=== PATIENT | male | born 1960 | race Caucasian/White ===

== ENCOUNTER 2017-03-08 06:14 | Day surgery (SDC) | payer OTHER ==
[2017-03-06 16:19] VITALS: BMI 36.4
[2017-03-08] MEDS ORDERED: MIDAZOLAM HCL 2 MG/2 ML SINGLE DOSE VIAL ONE ×2 (07:24→07:57)
[2017-03-08] MEDS ORDERED: ONDANSETRON 4 MG/2 ML VIAL IVPUSH PRN (07:28)
[2017-03-08] MEDS ORDERED: PROMETHAZINE HCL 25 MG/1 ML VIAL IVPUSH PRN (07:28)
[2017-03-08] MEDS ORDERED: LACTATED RINGERS SOLUTION 1,000 ML IV SCH (07:30)
[2017-03-08] MEDS ORDERED: oxyCODONE HCL 5 MG TABLET PO PRN (08:54)
--- NOTE | 2017-03-08 08:57 | OP ---
Operative Note - Note: Operative Date: 03/08/17 Pre-Operative Diagnosis: BPH-trilobar hyperplasia with nocturia Operation: Bipolar TURP/TURVP Findings: trilobar hyperplasia, also bulbar stricture Post-Operative Diagnosis: Same as Pre-op Surgeon: Favian Pantoja Anesthesia: General, Spinal Specimens Removed: prostate chips Estimated Blood Loss (mls): 20 Operative Report Dictated: Yes
[2017-03-08] MEDS ORDERED: ELECTROLYTE-148 SOLN 1,000 ML IV SCH (09:00)
[2017-03-08 09:19] VITALS: TEMP 98
--- NOTE | 2017-03-08 09:56 | OP ---
DATE OF OPERATION: DATE OF DICTATION: 03/08/2017 PREOPERATIVE DIAGNOSIS: BPH with nocturia. POSTOPERATIVE DIAGNOSIS: BPH with nocturia. PROCEDURE: Bipolar transurethral resection of prostate and bipolar transurethral vaporization of prostate. SURGEON: Anabell Broussard MD INDICATION: Patient is a 57-year-old male with BPH and bothersome nocturia failed medical therapy. After reviewing treatment options, he has elected to undergo TURP. He understood the risks of bleeding, infection, impotence, incontinence, stricture formation, potential retrograde ejaculation, potential need for additional procedures, potential injury to adjacent organs. DESCRIPTION OF PROCEDURE: After informed consent was obtained, the patient was taken to the OR and placed supine on the table. Cardiac monitoring was administered. A spinal anesthetic was then given. He was prepped and draped in dorsal lithotomy position. He was given 500 mg of Levaquin. At this point, the 26-sheath with the rigid cystoscope with the visual obturator without difficulty normal. Bulbar urethra was a bit narrowed and strictured, but this was bypassed and dilated with the scope under visualization. The prostatic urethra was traversed and then the bladder visualized. There were no tumors or stones noted in the bladder. The prostatic urethra had a sort of bilobed median lobe and there was lateral lobe hyperplasia as well. Using the loop first, the median bar was taken down until it was flat level to the bladder neck. This tissue was removed with the Domo evacuator and sent to Pathology for analysis. Then using the button electrode, the residual median bar tissue was then flattened and vaporized as well as some of the lateral tissue until a wide-open channel was created. There was no resecting or vaporization within one centimeter of the verumontanum to minimize the chance of incontinence. With a wide-open channel created, the residual prostatic chips were removed and there was no injury to any structures in the bladder. Bilateral ureteral orifices were seen with normal efflux. Resectoscope was then removed and a 22-[place] Rodas was then placed to straight drainage. [place]-tinged urine was retrieved. The patient was then awoken from anesthesia and transferred to the recovery room in stable condition. There were no complications. Estimated blood loss was 20 mL. ANABELL BROUSSARD M.D. [id number]
[2017-03-08 11:51] VITALS: BP 148/86; PULSE 86
--- NOTE | 2017-03-13 13:06 | PATH ---
Surgical Pathology Report Patient Name: JAJA HUSSEIN [facility]. Rec. #: [id number] /Age/Gender: 1960 (Age: 57) / M Account: [id number] Location: [facility] Taken: 03/08/2017 Received: 03/08/2017 Reported: 03/13/2017 Physicians: Favian Pantoja M.D. Specimen(s) Received PROSTATE CHIPS Clinical History Benign prostatic hyperplasia Final Diagnosis PROSTATE, TRANSURETHRAL RESECTION OF PROSTATE: BENIGN PROSTATIC TISSUE WITH FOCAL CHRONIC INFLAMMATION, ACINAR ATROPHY, CYSTIC CHANGES, GLANDULAR AND STROMAL HYPERPLASIA. Electronically Signed Pamela Shipley M.D. Gross Description Received in formalin labeled "prostate chips," is a 5 g, 8.0 x 5.3 x 0.4 cm aggregate of multiple becker, irregular, firm to rubbery portions of tissue, consistent with prostate chips. The specimen is entirely submitted in 7 cassettes. 03/08/201703/08/2017
== END 2017-03-08 11:51 | disposition home or self-care (01) ==
LOC: JASU-SURG 06:14
PROVIDERS: ATTEND Urology
PROC: 0VT08ZZ Resection of Prostate, Via Natural or Artificial Opening Endoscopic (ICD-10-PCS; principal; 2017-03-08 07:30)
DX: N40.1 Benign prostatic hyperplasia with lower urinary tract symptoms (principal); R35.1 Nocturia
CPT/HCPCS: 88305-TC; 94760

== ENCOUNTER 2018-11-21 14:29 | Inpatient (IN) | payer OTHER ==
[2018-11-21] MEDS ORDERED: ASPIRIN 81 MG CHEWABLE TABLETS PO ONE (14:45)
--- NOTE | 2018-11-21 14:45 | PDOC ---
Rapid Medical Evaluation Time Seen by Provider: 11/21/18 14:41 Medical Evaluation: Allergies Allergy/AdvReac Type Severity Reaction Status Date / Time Penicillins Allergy Intermediate Verified 03/08/17 06:38 11/21/18 14:42 I have performed a brief in-person evaluation of this patient. The patient presents with a chief complaint of: went to urgent care bc of "feeling elevated BP and PVCs" x 2-3 days, abnormal EKG at [facility] and sent here (no meds given there). denies sob/chest pain, denies hx of ACS. hx of HTN. denies tobacco/drug use Pertinent physical exam findings: well appearing, NAD, BP 214/119 I have ordered the following: cardiac workup The patient will proceed to the ED for further evaluation. Discharge Disposition - Diagnosis Abnormal EKG, Hypertensive emergency - Discharge Dispostion Condition at time of disposition: Stable - Referrals - Patient Instructions - Post Discharge Activity
[2018-11-21 14:49] VITALS: BMI 38.5
--- NOTE | 2018-11-21 14:56 | PDOC ---
History of Present Illness - General Chief Complaint: Palpitations Stated Complaint: SENT BY PCP FOR ABN EKG Time Seen by Provider: 11/21/18 14:41 Past History - Past Medical History Allergies/Adverse Reactions: Allergies Allergy/AdvReac Type Severity Reaction Status Date / Time Penicillins Allergy Intermediate Verified 03/08/17 06:38 Home Medications: Ambulatory Orders Metoprolol Succinate 100 mg PO BID 03/06/17 Valsartan-Hctz 320-25 mg Tab 1 tab PO DAILY 03/06/17 Nifedipine ER [Procardia XL -] 30 mg PO DAILY #30 tab.er.24 11/22/18 Anemia: No Asthma: No Cancer: No Cardiac Disorders: No CVA: No COPD: No CHF: No Dementia: No Diabetes: No GI Disorders: No Disorders: No HTN: Yes Hypercholesterolemia: No Liver Disease: No Seizures: No Thyroid Disease: No - Surgical History Abdominal Surgery: No Appendectomy: No Cardiac Surgery: No Cholecystectomy: No Lung Surgery: No Neurologic Surgery: No Orthopedic Surgery: No - Psycho Social/Smoking Cessation Hx Smoking History: Never smoked Have you smoked in the past 12 months: No Information on smoking cessation initiated: No Hx Alcohol Use: No Drug/Substance Use Hx: No Substance Use Type: None Hx Substance Use Treatment: No *Physical Exam - Vital Signs Last Vital Signs Temp Pulse Resp BP Pulse Ox 98.1 F 70 16 214/119 H 98 11/21/18 14:43 11/21/18 14:43 11/21/18 14:43 11/21/18 14:43 11/21/18 14:43 ED Treatment Course - LABORATORY CBC & Chemistry Diagram: 11/21/18 14:52 11/21/18 14:52 Medical Decision Making - Medical Decision Making HPI: 58yo M with PMH of HTN, PVC's, and BPH presenting with hypertension, PVCs, and episode of dizziness. Patient states he has been compliant on his medications. He does not check his blood pressure regularly at home, but will when he feels poorly. Over the past two-three days, the blood pressure has been consistently high, in the 200s systolic. He had an episode of room-spinning dizziness yesterday at 1pm and felt like he might pass out. Denies chest pain or trouble breathing. Has a history of PVCs and felt they have occured more frequently. Went to an urgent care today and was referred to the ER for further evaluation. No fevers or chills. PCP: none Cardio: none ROS: Constitutional: no fever, no chills HEENT: no throat pain, no dysphagia Cardiovascular: no chest pain, no palpitations Respiratory: no cough, no shortness of breath Gastrointestinal: no abdominal pain, no nausea Genitourinary: no dysuria, no hematuria Musculoskeletal: no myalgia, no arthralgia Skin: no rash, no itching Neurologic: +dizziness, no weakness PE: General: Awake, alert, and fully oriented, morbidly obese, in no acute distress Head: No signs of trauma Eyes: EOMI, sclera anicteric ENT: Moist mucus membranes Neck: Normal ROM, supple Lungs: Lungs clear, Normal breath sounds Cardio: Regular rhythm, S1 and S2 present Abdomen: Soft, nontender Extremities: Normal range of motion, Distal pulses present, No calf tenderness SKIN: Warm, Dry, normal turgor Neurologic: Cranial nerves II through XII intact. Normal speech, strength, sensation, coordination. Deferred gait exam ED Course/MDM: DDX including but not limited to hypertensive urgency vs emergency, ACS, pre/ syncope, metabolic derangement, Labs, EKG, CXR Labetolol 10mg IV 11/21/18 14:56 EKG: rate 78, QTc 481, sinus with PVCs CT head without IV contrast: "CT scan of the head without intravenous contrast Compared to prior CT scan of the head dated 08/21/2009 and prior MRI of the head dated 01/08/2007. There is minimal volume loss which is nonspecific. The ventricles and basal cisterns appear unremarkable. No mass lesion, acute infarct or intracranial hemorrhage are identified. There is no shift of the midline structures. The craniocervical junction appears unremarkable. Visualized paranasal sinuses and mastoid air cells are well aerated and the calvarium is intact Impression: No gross CT evidence of acute intracranial pathology is identified. Correlate clinically to determine further evaluation and follow-up " 11/21/18 17:08 CBC WBC 9.8 K/mm3 (4.0-10.0) 11/21/18 14:52 RBC 4.59 M/mm3 (4.00-5.60) 11/21/18 14:52 Hgb 13.9 GM/dL (11.7-16.9) 11/21/18 14:52 Hct 40.9 % (35.4-49) 11/21/18 14:52 MCV 89.3 fl (80-96) 11/21/18 14:52 MCH 30.4 pg (25.7-33.7) 11/21/18 14:52 MCHC 34.0 g/dl (32.0-35.9) 11/21/18 14:52 RDW 14.2 % (11.9-15.9) 11/21/18 14:52 Plt Count 214 K/MM3 (134-434) 11/21/18 14:52 MPV 8.7 fl (7.5-11.1) 11/21/18 14:52 Absolute Neuts (auto) 6.5 K/mm3 (1.5-8.0) 11/21/18 14:52 Neutrophils % 66.5 % (42.8-82.8) 11/21/18 14:52 Lymphocytes % 21.7 % (8-40) 11/21/18 14:52 Monocytes % 8.6 % (3.8-10.2) 11/21/18 14:52 Eosinophils % 2.4 % (0-4.5) 11/21/18 14:52 Basophils % 0.8 % (0-2.0) 11/21/18 14:52 Nucleated RBC % 0 % (0-0) 11/21/18 14:52 No leukocytosis CMP Sodium 142 mmol/L (136-145) 11/21/18 14:52 Potassium 3.3 mmol/L (3.5-5.1) L 11/21/18 14:52 Chloride 106 mmol/L (98-107) 11/21/18 14:52 Carbon Dioxide 31 mmol/L (21-32) 11/21/18 14:52 Anion Gap 4 MMOL/L (8-16) L 11/21/18 14:52 BUN 19.6 mg/dL (7-18) H 11/21/18 14:52 Creatinine 1.0 mg/dL (0.55-1.3) 11/21/18 14:52 Est GFR (CKD-EPI)AfAm 96.40 11/21/18 14:52 Est GFR (CKD-EPI)NonAf 83.18 11/21/18 14:52 Random Glucose 83 mg/dL (74-106) 11/21/18 14:52 Calcium 8.7 mg/dL (8.5-10.1) 11/21/18 14:52 Magnesium 2.2 mg/dL (1.8-2.4) 11/21/18 14:52 Total Bilirubin 0.4 mg/dL (0.2-1) 11/21/18 14:52 AST 17 U/L (15-37) 11/21/18 14:52 ALT 28 U/L (13-61) 11/21/18 14:52 Alkaline Phosphatase 63 U/L (45-117) 11/21/18 14:52 Creatine Kinase 184 U/L (26-308) 11/21/18 14:52 Creatine Kinase Index 0.8 % (0.0-5.0) 11/21/18 14:52 CK-MB (CK-2) 1.5 ng/mL (0.5-3.6) 11/21/18 14:52 Troponin I < 0.02 ng/ml (0.00-0.05) 11/21/18 14:52 Total Protein 7.2 g/dl (6.4-8.2) 11/21/18 14:52 Albumin 3.8 g/dl (3.4-5.0) 11/21/18 14:52 K is low Cr normal Tpn undetectable No signs of end organ damage seen at this time BP 166/102 (MAP 123) BP 182/100 (MAP 127) Plan for admission for hypertensive emergency vs. urgency 11/21/18 17:49 Discussed case with MARCIE Vick who accpeted patient for telemetry admission under Dr. Morales 11/21/18 18:05 CXR as read by radiology: "Chest x-ray, PA and lateral. Since prior chest x-ray dated 01/07/2007, the cardiac silhouette remains borderline in size with mild atherosclerotic unfolding of the aortic arch and the lung is clear. Mediastinum and visualized osseous structures appear intact. Impression: Borderline cardiomegaly without evidence of acute lung " Discharge - Discharge Information Problems reviewed: Yes Clinical Impression/Diagnosis: Abnormal EKG, Hypertensive emergency, Palpitations Condition: Guarded - Admission Yes - Follow up/Referral - Patient Discharge Instructions - Post Discharge Activity
[2018-11-21] MEDS ORDERED: ASPIRIN 81 MG CHEWABLE TABLETS ONE (15:04)
[2018-11-21 15:15] LABS: BASO % 0.8 % (0-2.0); EOS % 2.4 % (0-4.5); HEMATOCRIT 40.9 % (35.4-49); HEMOGLOBIN 13.9 GM/dL (11.7-16.9); LYMPH % 21.7 % (8-40); MCH 30.4 pg (25.7-33.7); MEAN CELL VOLUME 89.3 fl (80-96); MEAN PLT VOLUME 8.7 fl (7.5-11.1); MONO % 8.6 % (3.8-10.2); NEUT % 66.5 % (42.8-82.8); PLATELET COUNT 214 K/MM3 (134-434); RBC 4.59 M/mm3 (4.00-5.60); RDW 14.2 % (11.9-15.9); WHITE BLOOD COUNT 9.8 K/mm3 (4.0-10.0)
[2018-11-21 15:34] LABS: ALBUMIN 3.8 g/dl (3.4-5.0); ALK PHOS 63 U/L (45-117); ANION GAP 4 MMOL/L (8-16); BILIRUBIN,TOTAL 0.4 mg/dL (0.2-1); BLOOD UREA NITROGEN 19.6 mg/dL (7-18); CALCIUM 8.7 mg/dL (8.5-10.1); CHLORIDE 106 mmol/L (98-107); CO2 31 mmol/L (21-32); GLUCOSE,RANDOM 83 mg/dL (74-106); MAGNESIUM 2.2 mg/dL (1.8-2.4); POTASSIUM 3.3 mmol/L (3.5-5.1); SGOT/AST 17 U/L (15-37); SGPT/ALT 28 U/L (13-61); SODIUM 142 mmol/L (136-145); TOT PROT 7.2 g/dl (6.4-8.2)
[2018-11-21 15:39] LABS: INR 1.03 (0.83-1.09); PROTHROMBIN TIME (PATIENT) 12.1 SEC (9.7-13.0)
[2018-11-21] MEDS ORDERED: LABETALOL HCL 5 MG/1 ML (100MG/20 ML VIAL) IVPUSH ONE (15:50)
--- NOTE | 2018-11-21 16:45 | PDOC ---
Documentation entered by Lizet Quintanilla SCRIBE, acting as scribe for Paras Drake MD. Paras Drake MD: This documentation has been prepared by the Dwight vang Adrianna, SCRIBE, under my direction and personally reviewed by me in its entirety. I confirm that the documentation accurately reflects all work, treatment, procedures, and medical decision making performed by me. Attending Attestation - Resident Resident Name: ClementinaMilenaVannesa - ED Attending Attestation I have performed the following: I have examined & evaluated the patient, The case was reviewed & discussed with the resident, I agree w/resident's findings & plan, Exceptions are as noted - HPI HPI: The patient is a 58 year old male, with a significant PMH of HTN, PVC's, and BPH , who presents to the ED for evaluation of elevated BP for 2-3 days. He states his BP has been elevated over the past 3 days (200s systolic), and notes more frequent PVCs than his baseline. Patient reports one episode of room-spinning dizziness yesterday. Patient went to [facility] earlier today for these complaints, where he was found to have an abnormal EKG and advised to come to the ED for further evaluation. Patient was compliant with all of his medications this morning. DEnies diaphoresis, headahce, CP, SOB, abd pain,N/V/D, visual sxs, urinary sxs, LE edema. Allergies: Penicillins Surgical History: None reported Social History: Denies EtOH, tobacco, or illicit drug use - Physicial Exam PE: Agree with resident exam - Medical Decision Making 11/21/18 16:37 58yo M hx HTN presents to the ED with elevated BP to 220s/111, with intermittent room spinning dizziness, increased frequency PVCs, . Pt compliant with 4 antihypertensive medications. Reports normal BP when he checks is in 140s systolic. In light of room spinning dizziness, pre-syncope, increased PVCs, concern for end organ damage. Will treat with IV labetalol and initiate end-organ damage w/u Anticipate admission for HTN urgency vs emergency - pt will need titration of anti-HTN regimen for better blood pressure control. Heart Score/ECG Review #1 11/21/18 16:35 EKG read and int by me: NSR, rate 78, normal axis. No SCOTT. +occasional PVCs
[2018-11-21] MEDS ORDERED: KCL 10 MEQ IVPB 30 MEQ/300 ML INFUS.BAG IVPB ONE (16:55)
[2018-11-21] MEDS: KCL 10 MEQ IVPB 10 MEQ/100 ML INFUS.BAG IVPB SCH ×3 (17:08→22:51)
[2018-11-21 17:55] LABS: PHOSPHOROUS 2.5 mg/dL (2.5-4.9)
[2018-11-21 20:57] LABS: URINE APPEARANCE CLEAR; URINE BILIRUBIN NEGATIVE (NEGATIVE); URINE COLOR YELLOW; URINE GLUCOSE (UA) NEGATIVE (NEGATIVE); URINE KETONE NEGATIVE (NEGATIVE); URINE LEUK ESTERASE NEGATIVE (NEGATIVE); URINE NITRITE NEGATIVE (NEGATIVE); URINE PROTEIN TRACE (NEGATIVE)
--- NOTE | 2018-11-21 23:19 | PN ---
Teaching Attending Note Name of Resident: Doris Kaplan ATTENDING PHYSICIAN STATEMENT I saw and evaluated the patient. I reviewed the resident's note and discussed the case with the resident. I agree with the resident's findings and plan as documented. SUBJECTIVE: 58 year old morbidly obese male with HTN, PVC's, and BPH, c/o elevated BP for 2- 3 days. He stated his BP has been elevated over the past 3 days (200s systolic) , and notes more frequent PVCs than his baseline. Patient reports one episode of room-spinning dizziness yesterday. Patient went to [facility] earlier for these complaints, where he was found to have an abnormal EKG and advised to come to the ED for further evaluation. OBJECTIVE: Last Vital Signs Temp Pulse Resp BP Pulse Ox 98.5 F 72 19 184/93 H 100 11/21/18 19:03 11/21/18 19:03 11/21/18 19:03 11/21/18 19:03 11/21/18 19:03 gen- nad , obese heent- normocephalic, moist mucous membranes neck supple cor s1+s2+rrr chest clear abd -soft nt ext - no pedal edema Abnormal Lab Results 11/21/18 14:52 Potassium 3.3 L Anion Gap 4 L BUN 19.6 H ekg reviewed imaging reviewed ASSESSMENT AND PLAN: #Severe asymptomatic hypertension - no evidence of end organ damage. EKG without signs of ischemia, trop neg, head ct neg. S/p IV labetolol in ER. BP dropped to 184/93. UA was wnl except for trace proteinuria. CXR normal w/o pleural effusions. Goal of BP drop is about 25% from original in first 6hrs. -admit to med/surg -restart on home anti htn med - valsartan/hctz, metoprolol succinate, -counseled on weight loss -bariatric surgery upon discharge -echo -workup for secondary causes of htn -counseled on salt restriction -pt noted to be on valsartan and lisinopril- suggested to stop lisinopril and restart nifedipine DVT ppx- heparin sc
[2018-11-22] MEDS ORDERED: LISINOPRIL 40 MG PO SCH ×2 (01:19→10:00)
[2018-11-22] MEDS ORDERED: VALSARTAN HCTZ PO SCH ×2 (01:19→10:00)
--- NOTE | 2018-11-22 02:17 | HP ---
CHIEF COMPLAINT: hypertension, dizziness PCP: was Dr. Welsh in [place] but no longer takes his insurance HISTORY OF PRESENT ILLNESS: 58 y.o. M PMH HTN, BPH s/p TURP presenting for multiple hypertensive episodes over the past 2-3 days. Pt went to urgent care today initially where he was found to have elevated BP with EKG showing prolonged qtc (491) & was told to come to the ED. The patient says he checks his BP at home about every few days and noticed it was in the 200s systolic recently x 3days and endorses palpitations. As per patient BP's are normally around 130s/90s at baseline. He also reports being in the supermarket yesterday when he became very dizzy and had to take a knee to prevent himself from falling. Patient says he takes all of his medications as prescribed. He follows up regularly with his PCP who is also his liaison officer (Dr. Welsh in [place]) but recently his insurance changed and they no longer accept his insurance so he is looking for new physicians for follow up care. On ROS: + dizziness Denies CP/ SOB/ OSBORN/ abd pain/ fevers/ chills/ N/V/D/ parasthesias/ myalgias/ weakness. ER course was notable for: (1) IV Labetalol 10mg IV (2) ASA 162mg (3) KCl 10mg IV Recent Travel: denies PAST MEDICAL HISTORY: HTN, BPH PAST SURGICAL HISTORY: TURP 2 yrs ago Social History: Smoking: denies Alcohol: denies Drugs: denies Allergies Penicillins Allergy (Intermediate, Verified 03/08/17 06:38) unsure of reaction HOME MEDICATIONS: Home Medications Medication Instructions Recorded Lisinopril 40 mg PO BID 03/06/17 Metoprolol Succinate 100 mg PO BID 03/06/17 Valsartan-Hctz 320-25 mg Tab 1 tab PO DAILY 03/06/17 PHYSICAL EXAMINATION Vital Signs - 24 hr 11/21/18 11/21/18 11/21/18 14:43 15:18 16:09 Temperature 98.1 F 98.5 F 98.5 F Pulse Rate 70 Pulse Rate [ 69 69 Left Radial] Respiratory 16 19 19 Rate Blood Pressure 214/119 H Blood Pressure 227/111 H 166/102 H [Left Arm] Blood Pressure [Right Arm] O2 Sat by Pulse 98 98 98 Oximetry (%) 11/21/18 11/21/18 11/22/18 17:10 19:03 00:28 Temperature 98.5 F Pulse Rate Pulse Rate [ 67 72 65 Left Radial] Respiratory 18 19 18 Rate Blood Pressure Blood Pressure 182/100 H 184/93 H [Left Arm] Blood Pressure 173/91 H [Right Arm] O2 Sat by Pulse 100 100 97 Oximetry (%) GENERAL: AOx3 NAD LUNGS: CTABL no incr work of breathing. No wheezing/ crackles noted. HEART: RRR no murmurs. ABDOMEN: Soft NTND. +BS. no organomegaly. MUSCULOSKELETAL: Normal range of motion all extremities EXTR: 2+ pulses palpated b/l UE & LE. 1+ edema noted LE's SKIN: No rashes or lesions noted. Laboratory Results - last 24 hr 11/21/18 11/21/18 11/21/18 14:52 14:52 14:52 WBC 9.8 RBC 4.59 Hgb 13.9 Hct 40.9 MCV 89.3 MCH 30.4 MCHC 34.0 RDW 14.2 Plt Count 214 MPV 8.7 Absolute Neuts (auto) 6.5 Neutrophils % 66.5 Lymphocytes % 21.7 Monocytes % 8.6 Eosinophils % 2.4 Basophils % 0.8 Nucleated RBC % 0 PT with INR 12.10 INR 1.03 Sodium 142 Potassium 3.3 L Chloride 106 Carbon Dioxide 31 Anion Gap 4 L BUN 19.6 H Creatinine 1.0 Est GFR (CKD-EPI)AfAm 96.40 Est GFR (CKD-EPI)NonAf 83.18 Random Glucose 83 Calcium 8.7 Phosphorus 2.5 Magnesium 2.2 Total Bilirubin 0.4 AST 17 ALT 28 Alkaline Phosphatase 63 Creatine Kinase 184 Creatine Kinase Index 0.8 CK-MB (CK-2) 1.5 Troponin I < 0.02 Total Protein 7.2 Albumin 3.8 TSH 1.28 Urine Color Urine Appearance Urine pH Ur Specific [place] Urine Protein Urine Glucose (UA) Urine Ketones Urine Blood Urine Nitrite Urine Bilirubin Urine Urobilinogen Ur Leukocyte Esterase 11/21/18 20:22 WBC RBC Hgb Hct MCV MCH MCHC RDW Plt Count MPV Absolute Neuts (auto) Neutrophils % Lymphocytes % Monocytes % Eosinophils % Basophils % Nucleated RBC % PT with INR INR Sodium Potassium Chloride Carbon Dioxide Anion Gap BUN Creatinine Est GFR (CKD-EPI)AfAm Est GFR (CKD-EPI)NonAf Random Glucose Calcium Phosphorus Magnesium Total Bilirubin AST ALT Alkaline Phosphatase Creatine Kinase Creatine Kinase Index CK-MB (CK-2) Troponin I Total Protein Albumin TSH Urine Color Yellow Urine Appearance Clear Urine pH 6.0 Ur Specific [place] 1.023 Urine Protein Trace Urine Glucose (UA) Negative Urine Ketones Negative Urine Blood Negative Urine Nitrite Negative Urine Bilirubin Negative Urine Urobilinogen 1.0 Ur Leukocyte Esterase Negative CXR: Borderline cardiomegaly without evidence of acute lung CT Head: No gross CT evidence of acute intracranial pathology is identified. ASSESSMENT/PLAN: 58 y.o. M PMH HTN, BPH s/p TURP presenting for multiple hypertensive episodes. #Hypertensive urgency -BP 214/119 on admission -S/p 10mg IV labetalol in ED, ASA 162mg -positive orthostatics: supine 174/87 sitting 167/94 standing 192/105 -Neg trop x2; trend -EKG @ urgent care shows prolonged qtc 491; EKG in ED shows rate 78, QTc 481, sinus with PVCs -restarted home meds: metoprolol 100mg BID, lisinopril 40mg BID, valsartan-hctz 320/25mg -F/u echo -vitals q4h -monitor on tele #Morbid obesity -pt endorses better bp's when he had lost weight in the past -counselled pt on importance of heathy diet, exercise & weight loss -recommend bariatric consult on d/c #BPH -controlled s/p TURP #FEN -no fluids at this time -hypokalemic, repleted -na controlled diet #DVT PPX -LVX 40mg SQ daily Visit type - Emergency Visit Emergency Visit: Yes ED Registration Date: 11/21/18 Care time: The patient presented to the Emergency Department on the above date and was hospitalized for further evaluation of their emergent condition. - New Patient This patient is new to me today: Yes Date on this admission: 11/22/18 - Critical Care Critical Care patient: No ATTENDING PHYSICIAN STATEMENT I saw and evaluated the patient. I reviewed the resident's note and discussed the case with the resident. I agree with the resident's findings and plan as documented. SUBJECTIVE: OBJECTIVE: ASSESSMENT AND PLAN:
[2018-11-22] MEDS ORDERED: LISINOPRIL 20 MG TABLET (FP) ONE (02:42)
[2018-11-22] MEDS ORDERED: HYDROCHLOROTHIAZIDE 25 MG TABLET (FP) ONE (02:42)
[2018-11-22] MEDS ORDERED: VALSARTAN 80 MG TABLET (UD) ONE (02:44)
[2018-11-22] MEDS ORDERED: LISINOPRIL 20 MG TABLET (FP) PO ONE (02:45)
[2018-11-22] MEDS: VALSARTAN 160 MG TABLET (UD) PO SCH ×2 (02:50→08:34)
[2018-11-22] MEDS: HYDROCHLOROTHIAZIDE 25 MG TABLET (FP) PO SCH ×2 (02:50→08:34)
[2018-11-22 08:32] VITALS: PULSE 74; TEMP 98
[2018-11-22] MEDS: ENOXAPARIN NA (PORCINE) 40 MG/0.4 ML DISP.SYRIN SQ SCH ×2 (08:33→09:21)
--- NOTE | 2018-11-22 09:22 | CON.CARD ---
Consult Consult Specialty:: Cardiology Referred by:: Dr. Brambila Reason for Consultation:: HTN - History of Present Illness Chief Complaint: Hypertension History of Present Illness: 58 M with long standing HTN (sees Dr. Welsh for cardio) with history of periodic BP spikes and hospital admissions for uncontrolled HTN. Went to urgent care yest feeling elevated BP and was sent to ER for hypertensive urgency and prolonged QT on ECG No CP, SOB, palps, edema. No neuro sx Head CT - Mild hypoK noted. - History Source History Provided By: Patient - Past Medical History WARP HAND: No: Alzheimer's, CVA, Dementia, Migraine, Multiple Sclerosis, Peripheral Neuropathy, Parkinson's, Seizure, Syncope, TIA, Vertigo, Other Cardio/Vascular: Yes: HTN Pulmonary: No: Asthma, Bronchitis, Cancer, COPD, O2 Dependent, Pneumonia, Previously Intubated, Pulmonary Embolus, Pulmonary Fibrosis, Sleep Apnea, Other Gastrointestinal: No: Ascites, Cancer, Constipation, Crohn's Disease, Diverticulitis, Diverticulosis, Esophageal Varices, Gastritis, GERD, GI Bleed, Hemorrhoids, Hiatal Hernia, Inflamatory Bowel Disease, Irritable Bowel Disease, Pancreatitis, Peptic Ulcer Disease, Ulcerative Colitis, Other Hepatobiliary: No: Cirrhosis, Cholelithiasis, Cholecystitis, Choledocholithiasis , Hepatitis A, Hepatitis B, Hepatitis C, Other Renal/: No: Renal Failure, Renal Inusuff, BPH, Cancer, Hematuria, Hemodialysis , Neurogenic Bladder, Renal Calculi, UTI, Other Heme/Onc: No: Anemia, B12 Deficiency, Bleeding Disorder, Cancer, Current Chemotherapy, Current Radiation Therapy, Hemochromatosis, Hypercoaguable State, Myeloproliferative Synd, Sickle Cell Disease, Sickle Cell Trait, Thrombocytopenia, Other Infectious Disease: No: AIDS, C-Diff, Herpes Zoster, HIV, MRSA, STD's, Tuberculosis, VREF, Other Psych: No: Addictions, Anxiety, Bipolar, Depression, Panic, Psychosis, Schizophrenia, Other Musculoskeletal: No: Bursitis, Chronic low back pain, Hemiparesis, Hemiplegia, Osteoarthritis, Paraplegia, Other Rheumatology: No: Fibromyalgia, Gout, Lupus, Rheumatoid Arthritis, Sarcoidosis, Vasculitis, Other ENT: No: Allergic Rhinitis, Sinusitis, Other Endocrine: No: Pine's Disease, Friona's Disease, Diabetes Insipidus, Diabetes Mellitus, Hyperparathyroidism, Hyperthyroidism, Hypothyroidism, Osteopenia, SIADH, Other Dermatology: No: Basal Cell, Cellulitis, Eczema, Melanoma, Psoriasis, Squamous Cell, Other - Alcohol/Substance Use Hx Alcohol Use: No - Smoking History Smoking history: Never smoked Have you smoked in the past 12 months: No - Social History History of Recent Travel: No Home Medications - Allergies Allergies/Adverse Reactions: Allergies Allergy/AdvReac Type Severity Reaction Status Date / Time Penicillins Allergy Intermediate Verified 03/08/17 06:38 - Home Medications Home Medications: Ambulatory Orders Lisinopril 40 mg PO BID 03/06/17 Metoprolol Succinate 100 mg PO BID 03/06/17 Valsartan-Hctz 320-25 mg Tab 1 tab PO DAILY 03/06/17 Family Medical History Family History: Unremarkable Review of Systems - Review of Systems Constitutional: reports: No Symptoms Eyes: reports: No Symptoms HENT: denies: No Symptoms, Difficult Swallowing, Ear Discharge, Ear Pain, Epistaxis, Gingival Bleeding, Hearing Loss, Mouth Swelling, Nasal Congestion, Ocular Prosthesis, Throat Pain, Toothache, Ringing in Ears, Other Neck: denies: No Symptoms, Decreased ROM, Lumps, Pain on Movement, Stiffness, Swollen Glands, Tenderness, Other Cardiovascular: denies: No Symptoms, Chest Pain, Edema, Palpitations, Shortness of Breath, Other Respiratory: denies: No Symptoms, Cough, Exercise Intolerance, Hemoptysis, Orthopnea, PND, Snoring, SOB, SOB on Exertion, Wheezing, Other Gastrointestinal: denies: No Symptoms, Abdominal Pain, Bloating, Constipation, Diarrhea, Dysphagia, Indigestion, Melena, Nausea, Rectal Bleeding, Vomiting, Vomiting Blood, Other Genitourinary: denies: No Symptoms, Burning, Discharge, Dysuria, Flank Pain, Frequency, Hematuria, Incontinence, Lesions, Menses, Pain, Testicular Mass, Testicular Pain, Testicular Swelling, Urgency, Vaginal Bleeding, Other Musculoskeletal: denies: No Symptoms, Back Pain, Crepitus, Decreased ROM, Extremity Pain, Joint Pain, Joint Swelling, Muscle Pain, Muscle Cramps, Muscle Weakness, Other Neurological: reports: Headache. denies: No Symptoms, Change in LOC, Change in Speech, Confusion, Dizziness, Incoordination, Numbness, Parasthesia, Pre- Existing Deficit, Seizure, Syncope, Tremors, Unsteady Gait, Weakness, Other Endocrine: denies: No Symptoms, Excessive Sweating, Flushing, Increased Hunger, Increased Thirst, Intolerance to Cold, Intolerance to Heat, Unexplained Weight Gain, Unexplained Weight Loss, Other Hematology/Lymphatic: denies: No Symptoms, Easily Bruised, Excessive Bleeding, Swollen Glands, Other Psychiatric: denies: No Symptoms, Altered Sleep Pattern, Anxiety, Depression, Hallucinations, Panic, Paranoia, Suicidal, Other - Risk Factors Known Risk Factors: Yes: Hypertension Vital Signs: Vital Signs Temperature 98.0 F 11/22/18 08:25 Pulse Rate 74 11/22/18 08:25 Respiratory Rate 17 11/22/18 08:25 Blood Pressure 199/118 H 11/22/18 08:25 O2 Sat by Pulse Oximetry (%) 97 11/22/18 06:45 Constitutional: Yes: No Distress Eyes: Yes: Conjunctiva Clear Neck: Yes: Trachea Midline Respiratory: Yes: CTA Bilaterally Gastrointestinal: Yes: Soft JVD: No Carotid Bruit: No PMI: Non-Displaced Heart Sounds: Yes: S1, S2 (RRR) Edema: No Neurological: Yes: Alert, Oriented - Other Data Labs, Other Data: CBC, BMP 11/21/18 14:52 11/21/18 14:52 INR, PTT INR 1.03 (0.83-1.09) 11/21/18 14:52 Troponin, BNP 11/21/18 14:52 Troponin I < 0.02 Troponin, BNP 11/21/18 14:52 Troponin I < 0.02 Laboratory Tests 11/21/18 11/21/18 11/21/18 14:52 14:52 14:52 WBC 9.8 Hgb 13.9 Plt Count 214 INR 1.03 Sodium 142 Potassium 3.3 L Creatinine 1.0 Creatine Kinase 184 Troponin I < 0.02 EKG: rate 78, QTc 481, sinus with PVCs Echo: Pending Imaging - Results Chest X-ray: Image Reviewed Cat Scan: Report Reviewed EKG: Image Reviewed Assessment/Plan IMP: Chronic HTN with hypertensive urgency Hypokalemia Prolonged QT REC: 1. Continue current meds, can add Ca2+ lucina (Procardia XL 30mg daily) 2. Replete K+, Mg 3. Repeat ECG to f/u QT 4. Echo for EF assessment Will follow
[2018-11-22] MEDS ORDERED: NIFEdipine E.R. 30 MG TABLET (FP) PO SCH (10:00)
[2018-11-22] MEDS ORDERED: NIFEdipine E.R. 30 MG TABLET (FP) ONE (10:41)
[2018-11-22 11:06] VITALS: BP 200/120
--- NOTE | 2018-11-22 11:07 | DS ---
Physical Exam: SUBJECTIVE: Patient wants to leave [place] and refusing to have labs this morning, further cardiac monitoring, echo or a repeat troponin. OBJECTIVE: Explained the risks of leaving [facility] with a BP of 220/120. Explained that he is at a risk for an acute stroke or cardiac arrest. Advised that he is at risk for sudden if he leaves the hospital. He has shown me that he has the capacity to make his own decisions and states that he is aware of the risks. He signed the AMA papers in my presence. States he will follow up with his general accounting manager, who he has been seeing for 8 years. Was willing to take the procardia 30 xl that was ordered by the general accounting manager today, and willing to take it at home. I asked him to re consider staying. He adamantly refused to stay. Vital Signs Period Temp Pulse Resp BP Sys/Sullivan Pulse Ox Last 24 Hr 97.9 F-98.5 F 65-74 15-19 166-227/91-120 97-100 PHYSICAL EXAM GENERAL: The patient is awake, alert, and fully oriented, in no acute distress. HEAD: Normal with no signs of trauma. EYES: PERRL, extraocular movements intact, sclera anicteric, conjunctiva clear. ENT: Ears normal, nares patent, oropharynx clear without exudates, moist mucous membranes. NECK: Trachea midline, full range of motion, supple. HEART: Regular rate and rhythm ABDOMEN: Soft, nontender, nondistended, normoactive bowel sounds, no guarding, no rebound, no hepatosplenomegaly, no masses. NEUROLOGICAL: Normal speech, gait steady PSYCH: Normal mood, normal affect. SKIN: Warm, dry, normal turgor, no rashes or lesions noted. LABS Laboratory Results - last 24 hr 11/21/18 11/21/18 11/21/18 14:52 14:52 14:52 WBC 9.8 RBC 4.59 Hgb 13.9 Hct 40.9 MCV 89.3 MCH 30.4 MCHC 34.0 RDW 14.2 Plt Count 214 MPV 8.7 Absolute Neuts (auto) 6.5 Neutrophils % 66.5 Lymphocytes % 21.7 Monocytes % 8.6 Eosinophils % 2.4 Basophils % 0.8 Nucleated RBC % 0 PT with INR 12.10 INR 1.03 Sodium 142 Potassium 3.3 L Chloride 106 Carbon Dioxide 31 Anion Gap 4 L BUN 19.6 H Creatinine 1.0 Est GFR (CKD-EPI)AfAm 96.40 Est GFR (CKD-EPI)NonAf 83.18 Random Glucose 83 Calcium 8.7 Phosphorus 2.5 Magnesium 2.2 Total Bilirubin 0.4 AST 17 ALT 28 Alkaline Phosphatase 63 Creatine Kinase 184 Creatine Kinase Index 0.8 CK-MB (CK-2) 1.5 Troponin I < 0.02 Total Protein 7.2 Albumin 3.8 TSH 1.28 Urine Color Urine Appearance Urine pH Ur Specific [place] Urine Protein Urine Glucose (UA) Urine Ketones Urine Blood Urine Nitrite Urine Bilirubin Urine Urobilinogen Ur Leukocyte Esterase 11/21/18 20:22 WBC RBC Hgb Hct MCV MCH MCHC RDW Plt Count MPV Absolute Neuts (auto) Neutrophils % Lymphocytes % Monocytes % Eosinophils % Basophils % Nucleated RBC % PT with INR INR Sodium Potassium Chloride Carbon Dioxide Anion Gap BUN Creatinine Est GFR (CKD-EPI)AfAm Est GFR (CKD-EPI)NonAf Random Glucose Calcium Phosphorus Magnesium Total Bilirubin AST ALT Alkaline Phosphatase Creatine Kinase Creatine Kinase Index CK-MB (CK-2) Troponin I Total Protein Albumin TSH Urine Color Yellow Urine Appearance Clear Urine pH 6.0 Ur Specific [place] 1.023 Urine Protein Trace Urine Glucose (UA) Negative Urine Ketones Negative Urine Blood Negative Urine Nitrite Negative Urine Bilirubin Negative Urine Urobilinogen 1.0 Ur Leukocyte Esterase Negative HOSPITAL COURSE: Date of Admission:11/21/18 Date of Discharge: 11/22/18 Explained the risks of leaving [facility] with a BP of 220/120. Explained that he is at a risk for an acute stroke or cardiac arrest. Advised that he is at risk for sudden if he leaves the hospital. He has shown me that he has the capacity to make his own decisions and states that he is aware of the risks. He signed the AMA papers in my presence. States he will follow up with his general accounting manager, who he has been seeing for 8 years. Was willing to take the procardia 30 xl that was ordered by the general accounting manager today, and willing to take it at home. I asked him to re consider staying. He adamantly refused to stay. Procardia 30 xl called in to his pharamacy, 30 pills Minutes to complete discharge: 45 Discharge Summary Problems reviewed: Yes Reason For Visit: HYPERTENSIVE EMERGENCY ABNORMAL EKG Current Active Problems Abnormal EKG (Acute) Hypertensive emergency (Acute) Condition: Guarded - Instructions Disposition: AGAINST MEDICAL ADVICE - Home Medications Comprehensive Discharge Medication List: Ambulatory Orders Lisinopril 40 mg PO BID 03/06/17 Metoprolol Succinate 100 mg PO BID 03/06/17 Valsartan-Hctz 320-25 mg Tab 1 tab PO DAILY 03/06/17 Nifedipine ER [Procardia XL -] 30 mg PO DAILY #30 tab.er.24 11/22/18 Problem List - Problems (1) Abnormal EKG Code(s): R94.31 - ABNORMAL ELECTROCARDIOGRAM [ECG] [EKG] (2) Hypertensive emergency Code(s): I16.1 - HYPERTENSIVE EMERGENCY This patient is new to me today: Yes Date on this admission: 11/22/18 Emergency Visit: Yes ED Registration Date: 11/21/18 Care time: The patient presented to the Emergency Department on the above date and was hospitalized for further evaluation of their emergent condition. Critical Care patient: No - Discharge Referral Referred to [facility] No
--- NOTE | 2018-11-22 12:53 | EKG ---
Test Reason : Blood Pressure : / mmHG Vent. Rate : 078 BPM Atrial Rate : 064 BPM P-R Int : 176 ms QRS Dur : 108 ms QT Int : 422 ms P-R-T Axes : 042 -15 069 degrees QTc Int : 481 ms SINUS RHYTHM WITH OCCASIONAL PREMATURE VENTRICULAR COMPLEXES POSSIBLE LEFT ATRIAL ENLARGEMENT LEFT VENTRICULAR HYPERTROPHY CANNOT RULE OUT SEPTAL INFARCT , AGE UNDETERMINED ABNORMAL ECG WHEN COMPARED WITH ECG OF 21-AUG-2009 17:37, PREMATURE VENTRICULAR COMPLEXES ARE NOW PRESENT VENT. RATE HAS INCREASED BY 27 BPM Confirmed by JULI MANN MD ([id number]) on 11/22/2018 12:52:54 PM Referred By: Confirmed By:JULI MANN MD
== END 2018-11-22 12:04 | disposition left against medical advice (07) | DRG 305 ==
LOC: JER 14:29 → JERBED 17:50
PROVIDERS: ADMIT Internal Medicine; ATTEND Nurse Practitioner Family
DX: I16.1 Hypertensive emergency (principal); R94.31 Abnormal electrocardiogram [ECG] [EKG]; N40.0 Benign prostatic hyperplasia without lower urinary tract symptoms; Z88.0 Allergy status to penicillin; E66.8 Other obesity; Z68.38 Body mass index [BMI] 38.0-38.9, adult; E87.6 Hypokalemia
CPT/HCPCS: 36415; 70450-TC; 71046-TC-FY; 80053; 81003; 82550; 82553; 83735; 84100; 84443; 84484; 85025; 85610; 93005; 93010; 99285-25

== ENCOUNTER 2018-12-27 09:31 | Emergency (ER) | payer OTHER ==
[2018-12-27 09:57] VITALS: TEMP 97.9; BMI 38.0
--- NOTE | 2018-12-27 10:08 | PDOC ---
History of Present Illness - General Chief Complaint: Blood Pressure Problem Stated Complaint: BP PROBLEM/LIGHTHEADED Time Seen by Provider: 12/27/18 10:07 Past History - Past Medical History Allergies/Adverse Reactions: Allergies Allergy/AdvReac Type Severity Reaction Status Date / Time Penicillins Allergy Intermediate Verified 03/08/17 06:38 Home Medications: Ambulatory Orders Metoprolol Succinate 100 mg PO BID 03/06/17 Valsartan-Hctz 320-25 mg Tab 1 tab PO DAILY 03/06/17 Lisinopril 20 mg PO BID 12/27/18 Nifedipine [Nifedipine ER] 60 mg PO ONCE 7 Days #7 tablet.er 12/27/18 Anemia: No Asthma: No Cancer: No Cardiac Disorders: No CVA: No COPD: No CHF: No Dementia: No Diabetes: No GI Disorders: No Disorders: No HTN: Yes Hypercholesterolemia: No Liver Disease: No Seizures: No Thyroid Disease: No - Surgical History Abdominal Surgery: No Appendectomy: No Cardiac Surgery: No Cholecystectomy: No Lung Surgery: No Neurologic Surgery: No Orthopedic Surgery: No - Psycho Social/Smoking Cessation Hx Smoking History: Unknown if ever smoked Have you smoked in the past 12 months: No Hx Alcohol Use: No Drug/Substance Use Hx: No Substance Use Type: None Hx Substance Use Treatment: No *Physical Exam - Vital Signs Last Vital Signs Temp Pulse Resp BP Pulse Ox 97.9 F 75 16 220/134 H 98 12/27/18 09:35 12/27/18 09:35 12/27/18 09:35 12/27/18 09:35 12/27/18 09:35 ED Treatment Course - LABORATORY CBC & Chemistry Diagram: 12/27/18 10:45 12/27/18 10:45 Medical Decision Making - Medical Decision Making 12/27/18 11:25 HPI: 58yo M hx HTN, PVCs, obesity, and BPH presents from home with lightheadedness and "foggy" feeling in setting of high BP since 0800 today. Pt was in [facility] yesterday and this AM. Pt was at work this AM at desk and had gradual onset lightheadedness, exactly the same as admission here on 11/21/18 for high BP and lightheadedness. Pt felt like he was going to pass out for approx 1min but did not pass out. Sat down and felt better, but lightheadedness and feeling like in "fog" has continued since then, constant. Pt took BP after felt dizzy and was 170s/100s so got nervous and came here. Also c/o dry mouth. Of note, pt did not eat usual full breakfast today, but just 4oz of coffee and a banana. Since pt was d/c from here 11/22/18, pt has taken his medications every day consistently : lisinopril 40 BID, metoprolol 100 BID, nifedipine 30 in AM, and valsartan HCTZ 325/25 in AM. Pt has also been keeping to a low salt diet, walking for exercise, and has lost 11lbs since d/c. Pt has been checking BP daily and it has been approx 140s/90s, but the past few days it has been 160s-170s/90s-100s. Denies any changes in diet, exercise, stress, or wellness. Denies falls, head injury, fever, chills, fatigue, headache, vertigo, numbness/tingling, weakness, vision changes, shortness of breath, cough, chest pain, palpitations, leg swelling, abdominal pain, blood in stool, diarrhea, constipation, nausea, vomiting, dysuria, hematuria, confusion. ROS: Constitutional: Positive for "foggy" feeling. Negative for chills, fever, fatigue, diaphoresis. HENT: Positive for dry mouth. Negative for sore throat, rhinorrhea, congestion. Eyes: Negative for visual disturbance. Respiratory: Negative for shortness of breath, cough, and wheezing. Cardiovascular: Negative for chest pain, palpitations, and leg swelling. Gastrointestinal: Negative for abdominal pain, blood in stool, constipation, diarrhea, nausea, and vomiting. Genitourinary: Negative for dysuria, flank pain, and hematuria. Musculoskeletal: Negative for myalgias, back pain, and neck pain. Skin: Negative for rash. Neurological: Positive for light-headedness. Negative for vertigo, syncope, weakness, numbness and headaches. Psychiatric/Behavioral: Negative for behavioral problems and confusion. PE: Gen: Alert, NAD, anxious but comfortable-appearing, obese HEENT: PERRL, EOMI, MMM, NCAT. No conjunctival pallor. Sclera are non-icteric. Oropharynx is clear. CV: Regular rate and rhythm. No murmurs, rubs, or gallops. PULM: No resp distress. CTAB, no wheezes, rales, or rhonchi. ABD: protuberant, soft, NT/ND, no rebound tenderness or guarding, no CVA tenderness. BACK: No TTP of c/t/l-spine. No step-offs or deformities. MSK: No bony deformities. 2+ pulses in all extremities. NEURO: AAOx3. PERRL. CN 2-12 intact. 5/5 strength in all extremities. Sensation to light touch intact in all extremities. No pronator drift. No dysmetria. No dysdiadochokinesia. No abnormal nystagmus. Normal gait. EXTREMITIES: No cyanosis. No clubbing. No edema. No calf tenderness. PSYCH: Anxious mood and normal thought pattern. SKIN: Warm and dry. Normal capillary refill. No rashes. No jaundice. MDM: 58yo M hx HTN, PVCs, obesity, and BPH presents from home with lightheadedness and "foggy" feeling in setting of high BP since 0800 today. Hypertensive 165/99 , otherwise stable VS, anxious-appearing, obese, neurologically intact. Ddx: HTN urgency vs emergency, metabolic derangement, dehydration, anemia, orthostatic hypotension, infection, cardiac pathology (ACS/DC, arrythmia) -Orthostatic VS -CBC,CMP,Cardiac profile,Mg,Phos,Coags,TSH,UA -EKG -CXR -Dispo: pending w/u Orthostatic VS: no orthostatic hypotension Labs reviewed. No concerning findings. CXR reviewed. No acute pathology EKG reviewed: NSR, 70bpm, QTc 457ms, normal axis, no e/o acute ischemia Dr Persaud spoke with doctor covering for pt's PCP and with Dr Renteria. Both will see pt this week. Dr Renteria recommended giving 30mg Nifedipine now and increasing dosage to 60mg/day. -30mg Nifedipine -500 NS and Tylenol order by Dr Persaud 12/27/18 14:43 180/100 2nd trop negative. Little lightheadedness remaining but improved, ambulates without difficulty, neurologically intact. Discussion with pt and pt would like to go home; safe for dc. Nifedipine increased to 60mg 1x/day per Dr Renteria. Sent to rx. Will dc home with PCP and cardio f/u on Mon/Tue. Return precautions given. Pt understands all dc instructions and all questions were answered. Discharge - Discharge Information Problems reviewed: Yes Clinical Impression/Diagnosis: Hypertensive urgency Condition: Improved Disposition: HOME - Admission No - Additional Discharge Information Prescriptions: Nifedipine [Nifedipine ER] 60 mg PO ONCE 7 Days #7 tablet.er - Follow up/Referral Referrals: Gerald Renteria MD [Staff Physician] - - Patient Discharge Instructions Patient Printed Discharge Instructions: DI for High Blood Pressure Additional Instructions: You have been seen in the Emergency Department for your lightheadedness and high blood pressure. Your EKG, chest X-ray, and labs, including Troponin (a heart enzyme), show no signs concerning for an emergent condition such as a heart attack. Your blood pressure lowered with relaxation and Nifedipine. We spoke with the doctor covering for your primary care doctor and the Scratcher (heart doctor) Dr Renteria. Dr Renteria recommended increasing your Nifedipine dose from 30mg to 60mg daily. We have sent a prescription to your pharmacy - stop taking the 30mg dose and start taking the 60mg dose once a day starting tomorrow 12/28/18. Follow-up with Dr Renteria on Sunday or Sunday and with your primary care doctor within 1 week. Call their offices on Sunday to set up these appointments. Return to the ED immediately if you experience dizziness, passing out, vision changes, numbness or tingling, chest pain, difficulty breathing, or any other new or worsening symptom. - Post Discharge Activity
[2018-12-27 11:03] LABS: BASO % 0.8 % (0-2.0); EOS % 1.9 % (0-4.5); HEMATOCRIT 42.5 % (35.4-49); HEMOGLOBIN 14.4 GM/dL (11.7-16.9); LYMPH % 19.6 % (8-40); MCH 30.4 pg (25.7-33.7); MEAN CELL VOLUME 89.4 fl (80-96); MEAN PLT VOLUME 8.8 fl (7.5-11.1); MONO % 6.9 % (3.8-10.2); NEUT % 70.8 % (42.8-82.8); PLATELET COUNT 243 K/MM3 (134-434); RBC 4.75 M/mm3 (4.00-5.60); RDW 14.2 % (11.9-15.9)
[2018-12-27 11:08] LABS: URINE APPEARANCE CLEAR; URINE BILIRUBIN NEGATIVE (NEGATIVE); URINE COLOR YELLOW; URINE GLUCOSE (UA) NEGATIVE (NEGATIVE); URINE KETONE NEGATIVE (NEGATIVE); URINE LEUK ESTERASE NEGATIVE (NEGATIVE); URINE NITRITE NEGATIVE (NEGATIVE); URINE PROTEIN TRACE (NEGATIVE); URINE UROBILINOGEN 0.2 mg/dL (0.2-1.0)
[2018-12-27 11:39] LABS: INR 0.95 (0.83-1.09); PROTHROMBIN TIME (PATIENT) 11.2 SEC (9.7-13.0)
[2018-12-27 11:40] LABS: ALBUMIN 3.8 g/dl (3.4-5.0); BILIRUBIN,TOTAL 0.4 mg/dL (0.2-1); BLOOD UREA NITROGEN 16.1 mg/dL (7-18); CALCIUM 9.2 mg/dL (8.5-10.1); MAGNESIUM 2.2 mg/dL (1.8-2.4); PHOSPHOROUS 2.5 mg/dL (2.5-4.9); POTASSIUM 3.4 mmol/L (3.5-5.1); TOT PROT 7.3 g/dl (6.4-8.2)
[2018-12-27 11:42] LABS: ACTIVATED PTT 34.5 SECONDS (25.2-36.5)
[2018-12-27] MEDS ORDERED: ACETAMINOPHEN 1000 MG/100 ML VIAL (NON FORMULARY) IVPB ONE (11:45)
[2018-12-27] MEDS ORDERED: SODIUM CHLORIDE 0.45% 500 ML IV SCH (11:45)
[2018-12-27] MEDS ORDERED: ACETAMINOPHEN INJECTION 100 ML IVPB ONE (12:05)
[2018-12-27] MEDS ORDERED: NIFEdipine E.R. 30 MG TABLET (FP) PO ONE (12:26)
[2018-12-27] MEDS ORDERED: NIFEdipine E.R. 30 MG TABLET (FP) ONE (12:30)
--- NOTE | 2018-12-27 13:53 | PDOC ---
Documentation entered by Antonio Gamble SCRIBE, acting as scribe for Isma Persaud MD. Isma Persaud MD: This documentation has been prepared by the Tye vang Xhesika, SCRIBE, under my direction and personally reviewed by me in its entirety. I confirm that the documentation accurately reflects all work, treatment, procedures, and medical decision making performed by me. Attending Attestation - Resident Resident Name: Vannesa Reaves - ED Attending Attestation I have performed the following: I have examined & evaluated the patient, The case was reviewed & discussed with the resident, I agree w/resident's findings & plan, Exceptions are as noted - HPI HPI: 12/27/18 10:51 The patient is a 58 year old male with a PMH of HTN, PVC's, and BPH who presents to the ED for elevated blood pressure associated with lightheadedness while at work. Patient states his BP has been increasing over the past 2-3 days , he took his BP today and it was 180/130s. Patient notes while he was at work he felt like he was about to pass out for about 2 minutes. Pt notes he experienced a similar episode on Sunday12/20/18, which resolved after drinking fluids. The patient endorsed similar symptoms in the past, was concerned, which prompted his arrival to the ED. The patient denies shortness of breath, headache or dizziness. Denies fever, chills, cough, nausea, vomiting, diarrhea and constipation. Denies dysuria, frequency, urgency and hematuria. Allergies:Penicillins Social Hx: Denies current smoking, drinking, or other substance usage. PCP: Dr. Jose Welsh ([phone]) - located in [place] - Physicial Exam PE: 12/27/18 11:52 Vitals: Triage Vital signs reviewed General Appearance: no acute distress, well nourished well developed, Neck: Supple;No Nuchal rigidity Chest Wall: Nontender Cardiac: Regular rate and rhythm, no murmurs, no rubs, no gallops, Lungs: Clear to auscultation bilateral, good air movement bilaterally, Abdomen: Soft, nondistended, normal bowel sounds, nontender to palpation Extremities: Full range of motion to all extremities, no cyanosis, clubbing, or edema Skin: Warm and dry, no rashes or lesions, no petechiae Neuro: Alert and oriented x3 nerves intact strength intact sensation intact gait within normal limits Psych: normal mood, normal affect - Medical Decision Making 12/27/18 15:57 58 years old with lightheadedness. Patient with chronic hypertension lightheadedness is his predominant symptom when patient's blood pressure is poorly controlled Patient recently admitted for similar nifedipine added to his blood pressure regimen initially at home patient's blood pressure in the 200s upon arrival to the emergency department better controlled Patient gently hydrated given IV Tylenol labs check troponin x2- EKG performed demonstrates no evidence of ischemia no ST elevations or T wave inversions Interpreted by me. Reevaluation patient observed in the emergency department for 5 hours symptoms are resolving patient's blood pressure is better controlled his diastolic is now 100 Case discussed with cardiology will increase patient's home nifedipine to 60 mg p.o. He will follow-up with cardiology on Sunday or Sunday He will return to the emergency department for any chest pain worsening lightheadedness severe worsening shortness of breath or for any concerns.
[2018-12-27 14:22] VITALS: BP 180/100; PULSE 73
--- NOTE | 2018-12-28 17:53 | EKG ---
Test Reason : Blood Pressure : / mmHG Vent. Rate : 070 BPM Atrial Rate : 070 BPM P-R Int : 170 ms QRS Dur : 108 ms QT Int : 424 ms P-R-T Axes : 039 -17 025 degrees QTc Int : 457 ms NORMAL SINUS RHYTHM POSSIBLE LEFT ATRIAL ENLARGEMENT LEFT VENTRICULAR HYPERTROPHY ABNORMAL ECG WHEN COMPARED WITH ECG OF 21-NOV-2018 14:32, PREMATURE VENTRICULAR COMPLEXES ARE NO LONGER PRESENT MINIMAL CRITERIA FOR SEPTAL INFARCT ARE NO LONGER PRESENT T WAVE INVERSION NOW EVIDENT IN INFERIOR LEADS Confirmed by MD Alison, Petar ([id number]) on 12/28/2018 5:53:06 PM Referred By: Confirmed By:Petar Rosas MD
== END 2018-12-27 15:03 | disposition home or self-care (01) ==
LOC: JER 09:31
PROC: 3E033NZ Introduction of Analgesics, Hypnotics, Sedatives into Peripheral Vein, Percutaneous Approach (ICD-10-PCS; principal; 2018-12-27)
DX: I16.0 Hypertensive urgency (principal); N40.0 Benign prostatic hyperplasia without lower urinary tract symptoms; E66.9 Obesity, unspecified; Z68.38 Body mass index [BMI] 38.0-38.9, adult; Z88.0 Allergy status to penicillin; Z86.79 Personal history of other diseases of the circulatory system
CPT/HCPCS: 36415; 71046-TC-FY; 80053; 81003; 82550; 82553; 83735; 84100; 84443; 84484; 85025; 85610; 85730; 93005; 93010; 99285-25; J0131

== ENCOUNTER 2019-08-23 13:00 | Emergency (ER) | payer OTHER ==
[2019-08-23] MEDS ORDERED: DIPHTH,PERTUSS(ACELL),TET 0.5 ML DISP.SYRIN IM ONE ×2 (13:12→13:35)
[2019-08-23 13:16] VITALS: TEMP 98.3; BMI 38.7
--- NOTE | 2019-08-23 13:28 | PDOC ---
History of Present Illness - General Chief Complaint: Injury Stated Complaint: I cut my finger with a hedge cutter Time Seen by Provider: 08/23/19 13:06 - History of Present Illness Initial Comments: 08/23/19 13:30 59 years old past medical history significant for hypertension high cholesterol not any blood thinners presents with injury to left index finger. Patient was using a sausage meat trimmer finger got caught in sausage meat trimmer injury to distal tip of finger. Complaining of 8 out of 10 pain throbbing persistent constant no exacerbating relieving factors. No other injury sustained. Past History - Medical History Allergies/Adverse Reactions: Allergies Allergy/AdvReac Type Severity Reaction Status Date / Time Penicillins Allergy Intermediate Verified 08/23/19 13:05 Home Medications: Ambulatory Orders Metoprolol Succinate 100 mg PO BID 03/06/17 Valsartan-Hctz 320-25 mg Tab 1 tab PO DAILY 03/06/17 Lisinopril 20 mg PO BID 12/27/18 Acetaminophen W/ Codeine #3 [Tylenol # 3 -] 1 tab PO Q6H #8 tablet MDD 4 08/23/19 Clindamycin [Cleocin -] 300 mg PO TID #21 capsule 08/23/19 Clonidine HCl 0.1 mg PO BID 08/23/19 Anemia: No Asthma: No Cancer: No Cardiac Disorders: No CVA: No COPD: No CHF: No Dementia: No Diabetes: No GI Disorders: No Disorders: No HTN: Yes Hypercholesterolemia: No Liver Disease: No Seizures: No Thyroid Disease: No - Surgical History Abdominal Surgery: No Appendectomy: No Cardiac Surgery: No Cholecystectomy: No Lung Surgery: No Neurologic Surgery: No Orthopedic Surgery: No - Psycho-Social/Smoking History Smoking History: Unknown if ever smoked Have you smoked in the past 12 months: No Review of Systems - Review of Systems Comments:: 08/23/19 13:30 ROS: A complete review of 10 out of 10 review of systems is taken and is negative apart from what is previously mentioned below and in the HPI. Procedures - Laceration/Wound Repair Left Finger Wound Length: to 2.5 cm Wound Explored: clean Wound's Depth, Shape: into muscle, irregular Irrigated w/ Saline: Yes Betadine Prep: Yes Anesthesia: 2% Lidocaine Amount of Anesthetic (ccs): 5 Wound Repaired With: Sutures Suture Size/Type: 5:0 Number of Sutures: 8 Layer Closure: No Sterile Dressing Applied: Yes Splint Applied: No Progress: 08/23/19 14:26 Thoroughly irrigated with 500 cc of normal saline under high pressure loosely approximated given deep wound and chance of contamination although no bone vi sualized during exploration no foreign body debris noted ED Treatment Course - RADIOLOGY Radiology Studies Ordered: Category Date Time Status FINGER(S) LEFT [RAD] Stat Radiology 08/23/19 13:12 Ordered Medical Decision Making - Medical Decision Making 08/23/19 14:26 Laceration to left index fingertip with hedge tremor macerated irregular laceration loosely approximated with 8 sutures. No evidence of fracture associated given depth of injury patient will be placed empirically on antibiotics and advised to follow-up with hand within 2 to 3 days Findings, the need for follow-up and strict return instructions discussed with patient. Discharge - Discharge Information Problems reviewed: Yes Clinical Impression/Diagnosis: Laceration Condition: Stable Disposition: HOME - Admission No - Additional Discharge Information Prescriptions: Clindamycin [Cleocin -] 300 mg PO TID #21 capsule Acetaminophen W/ Codeine #3 [Tylenol # 3 -] 1 tab PO Q6H #8 tablet MDD 4 - Follow up/Referral Referrals: Cosmo Singleton MD [Staff Physician] - - Patient Discharge Instructions Patient Printed Discharge Instructions: DI for Laceration Repair Additional Instructions: Clindamycin as prescribed. Tylenol with codeine as prescribed. Leave finger covered for the next 36 hours. Then change dressing twice a day cover with bacitracin. Observe for any signs of infection such as swelling bleeding pus severe pain. Elevate, ice 20 min on 20 min off. Follow-up with Dr. Singleton in 2 to 3 days hand Return to the ED in 7 to 10 days for suture removal or immediately for any signs of infection. - Post Discharge Activity
[2019-08-23] MEDS ORDERED: LIDOCAINE HCL 2% (50ML VIAL) SQ ONE (13:33)
[2019-08-23] MEDS ORDERED: LIDOCAINE HCL 2% (20ML MULTI-DOSE VIAL) ONE (13:38)
[2019-08-23 14:26] VITALS: BP 178/111; PULSE 79
== END 2019-08-23 14:41 | disposition home or self-care (01) ==
LOC: FER 13:00 → SUPCPDRO 13:00 → FER 14:41
PROC: 0HQGXZZ Repair Left Hand Skin, External Approach (ICD-10-PCS; principal; 2019-08-23)
PROC: 3E0234Z Introduction of Serum, Toxoid and Vaccine into Muscle, Percutaneous Approach (ICD-10-PCS; 2019-08-23)
DX: S61.211A Laceration without foreign body of left index finger without damage to nail, initial encounter (principal)
CPT/HCPCS: 73140-TC-LT-FY; 90715; 99284-25

== ENCOUNTER 2022-12-15 20:31 | Inpatient (IN) | payer OTHER ==
[2022-12-15 20:53] VITALS: BMI 37.2
[2022-12-15] MEDS ORDERED: ENALAPRILAT DIHYDRATE 1.25 MG/1 ML VIAL IVPB ONE (21:46)
[2022-12-15] MEDS ORDERED: ENALAPRILAT DIHYDRATE 2.5 MG/2 ML VIAL IVPB ONE (21:49)
[2022-12-15 21:55] LABS: VENOUS O2 SATURATION 92.3 % (70-80); VENOUS PCO2 37.8 mmHg (38-52); VENOUS PH 7.438 (7.310-7.410)
[2022-12-15 22:06] LABS: BASO % 0.3 % (0-2.0); EOS % 1.2 % (0-4.5); EPI CELLS 3 /uL (0-25.1); HEMATOCRIT 41.5 % (35.4-49); HEMOGLOBIN 14.3 GM/dL (11.7-16.9); HYALINE CASTS 0 /uL (0-3.1); LYMPH % 11.7 % (8-40); MCH 30.1 pg (25.7-33.7); MCHC 34.3 g/dl (32.0-35.9); MEAN CELL VOLUME 87.6 fl (80-96); MEAN PLT VOLUME 8.6 fl (7.5-11.1); MONO % 5.4 % (3.8-10.2); NEUT % 81.4 % (42.8-82.8); PLATELET COUNT 244 10^3/uL (134-434); RBC 4.74 M/mm3 (4.00-5.60); URINE APPEARANCE CLEAR; URINE BACTERIA 1 /uL (0-1359); URINE BILIRUBIN NEGATIVE (NEGATIVE); URINE COLOR YELLOW; URINE GLUCOSE (UA) NEGATIVE (NEGATIVE); URINE KETONE NEGATIVE (NEGATIVE); URINE LEUK ESTERASE NEGATIVE (NEGATIVE); URINE NITRITE NEGATIVE (NEGATIVE); URINE PROTEIN 1+ (NEGATIVE); URINE RBC 7 /uL (0-23.9); URINE UROBILINOGEN 0.2 mg/dL (0.2-1.0); URINE WBC 4 /uL (0-25.8); WHITE BLOOD COUNT 11.1 K/mm3 (4.0-10.0)
[2022-12-15 22:14] LABS: INR 1.03 (0.83-1.09); PROTHROMBIN TIME (PATIENT) 11.9 SEC (9.7-13.0)
[2022-12-15 22:16] LABS: POTASSIUM 3.4 mmol/L (3.5-5.1)
[2022-12-15 22:17] LABS: ACTIVATED PTT 31.1 SECONDS (25.2-36.5)
[2022-12-15 22:19] LABS: CALCIUM 8.8 mg/dL (8.5-10.1)
[2022-12-15 22:20] LABS: BLOOD UREA NITROGEN 27.3 mg/dL (7-18); MAGNESIUM 2.3 mg/dL (1.8-2.4)
[2022-12-15 22:23] LABS: CREATININE 1.2 mg/dL (0.55-1.3)
[2022-12-15 22:24] LABS: BILIRUBIN,TOTAL 0.5 mg/dL (0.2-1); TOT PROT 7.5 g/dl (6.4-8.2)
[2022-12-15] MEDS ORDERED: LABETALOL HCL 5 MG/1 ML (100MG/20 ML VIAL) IVPUSH ONE (23:31)
[2022-12-15] MEDS ORDERED: LABETALOL HCL 20 MG/4 ML VIAL ONE (23:41)
[2022-12-16] MEDS ORDERED: AZITHROMYCIN IVPB 500 MG in DEXTROSE 5%-WATER - 250 ML IVPB ONE (00:49)
[2022-12-16] MEDS ORDERED: LABETALOL HCL 5 MG/1 ML (100MG/20 ML VIAL) IVPUSH ONE ×2 (01:08)
[2022-12-16] MEDS ORDERED: AZITHROMYCIN IVPB 500 MG/250 ML BAG IVPB ONE (01:11)
[2022-12-16] MEDS ORDERED: CEFTRIAXONE 1 GM/50 ML BAG ONE ×2 (01:11→06:27)
[2022-12-16] MEDS ORDERED: cloNIDine HCL 0.1 MG TABLET PO ONE (04:38)
[2022-12-16] MEDS ORDERED: LABETALOL HCL 100 MG TABLET (FP) PO SCH ×4 (05:07→10:00)
[2022-12-16 05:47] VITALS: BP 200/106; PULSE 66; RESP 16; TEMP 98
[2022-12-16] MEDS ORDERED: CEFTRIAXONE 1,000 MG in DEXTROSE 5%-WATER - 50 ML IVPB ONE (05:47)
[2022-12-16] MEDS ORDERED: CEFTRIAXONE 1 GM in DEXTROSE 5%-WATER - 50 ML IVPB SCH (05:52)
[2022-12-16 05:55] LABS: BASO % 0.5 % (0-2.0); EOS % 0.8 % (0-4.5); HEMATOCRIT 38.5 % (35.4-49); LYMPH % 16.5 % (8-40); MCHC 33.7 g/dl (32.0-35.9); MEAN PLT VOLUME 8.2 fl (7.5-11.1); MONO % 7.1 % (3.8-10.2); NEUT % 75.1 % (42.8-82.8); PLATELET COUNT 219 10^3/uL (134-434); RBC 4.32 M/mm3 (4.00-5.60); RDW 13.8 % (11.9-15.9); WHITE BLOOD COUNT 8.5 K/mm3 (4.0-10.0)
[2022-12-16] MEDS ORDERED: hydrALAZINE HCL 20 MG/ML VIAL IM ONE (06:06)
[2022-12-16 06:17] LABS: CALCIUM 8.4 mg/dL (8.5-10.1)
[2022-12-16 06:18] LABS: ALBUMIN 3.6 g/dl (3.4-5.0); BLOOD UREA NITROGEN 21.2 mg/dL (7-18); MAGNESIUM 2.3 mg/dL (1.8-2.4)
[2022-12-16 06:21] LABS: PHOSPHOROUS 2.6 mg/dL (2.5-4.9)
[2022-12-16 06:22] LABS: BILIRUBIN,TOTAL 0.6 mg/dL (0.2-1); TOT PROT 6.7 g/dl (6.4-8.2)
[2022-12-16] MEDS ORDERED: LABETALOL HCL 200 MG TABLET (FP) ONE (06:27)
[2022-12-16] MEDS ORDERED: VALSARTAN 160 MG TABLET PO SCH (10:00)
[2022-12-16] MEDS ORDERED: HYDROCHLOROTHIAZIDE 25 MG TABLET (FP) PO SCH ×2 (10:00)
[2022-12-16] MEDS ORDERED: cloNIDine HCL 0.1 MG TABLET PO SCH (10:00)
[2022-12-16] MEDS ORDERED: LISINOPRIL 20 MG TABLET PO SCH (10:00)
[2022-12-16] MEDS ORDERED: PATIENT'S OWN MEDICATION (NON-FORMULARY) (Clonidine Hcl [Clonidine Hcl] 0.2 MG Tablet) PO SCH (10:00)
== END 2022-12-16 10:03 | disposition home or self-care (01) | DRG 304 ==
LOC: JER 20:31 → JERBED 12-16 00:48 → OBSVTOIN 12-16 03:29
PROVIDERS: ADMIT Internal Medicine; ATTEND Internal Medicine
DX: I16.0 Hypertensive urgency (principal); J18.9 Pneumonia, unspecified organism; N40.0 Benign prostatic hyperplasia without lower urinary tract symptoms; I71.21 Aneurysm of the ascending aorta, without rupture; E66.9 Obesity, unspecified; Z68.37 Body mass index [BMI] 37.0-37.9, adult
CPT/HCPCS: 0241U-QW; 36415; 71275-TC; 80053; 81003; 82803; 83735; 84100; 84484; 85025; 85610; 85730; 86850; 86900; 86901; 87086; 93005; 93010; 99285-25; G0378; Q9967